=== PATIENT | female | born 1970 | race Caucasian/White ===

== ENCOUNTER 2019-12-24 11:52 | Inpatient (IN) | payer BC ==
[2019-12-24] MEDS ORDERED: HEPARIN SODIUM,PORCINE 5,000 UNIT/ML 1 ML VIAL IV PRN (12:27)
[2019-12-24] MEDS ORDERED: DILTIAZEM 125 MG in SODIUM CHLORIDE 0.9% 100 ML IV SCH (12:30)
[2019-12-24] MEDS ORDERED: HEPARIN SOD,PORK IN 0.45% NACL 25,000 UNIT in 0.45% NACL 1 250ML.BAG IV SCH (12:30)
--- NOTE | 2019-12-24 12:41 | ED ---
General Adult HPI - General Source: patient, EMS, RN notes reviewed Mode of arrival: EMS Limitations: no limitations <Ming Ramirez - Last Filed: 12/24/19 12:33> <Marcelino Brantley - Last Filed: 12/24/19 13:13> - General Chief complaint: Arrhythmia/Palpitations Stated complaint: irregular heart beat Time Seen by Provider: 12/24/19 11:56 - History of Present Illness Initial comments: 49-year-old female presents to the emergency department for a chief complaint of atrial fibrillation. Patient was a transfer from [facility]. Patient reports that for the past several months she has felt that her heart rate becomes elevated and starts to pound. States she first noticed it with running a couple months ago. Patient states at that point she saw her primary care provider who had a normal EKG and a low potassium. Patient was started on potassium supplements as well as hydrochlorothiazide. She states this has not been working. Patient states it is now to the point where it keeps her up at night. She denies shortness of breath. States that she was on her work today when her heart rate was in the 160s so she decided to be seen.Patient has no other complaints at this time including shortness of breath, chest pain, abdominal pain, nausea or vomiting, headache, or visual changes. (Ming Ramirez) - Related Data Allergies Allergy/AdvReac Type Severity Reaction Status Date / Time No Known Allergies Allergy Verified 12/24/19 12:15 Review of Systems ROS Other: All systems not noted in ROS Statement are negative. <Ming Ramirez - Last Filed: 12/24/19 12:33> ROS Other: All systems not noted in ROS Statement are negative. <Marcelino Brantley - Last Filed: 12/24/19 13:13> ROS Statement: Those systems with pertinent positive or pertinent negative responses have been documented in the HPI. Past Medical History Past Medical History: No Reported History History of Any Multi-Drug Resistant Organisms: None Reported Past Surgical History: No Surgical Hx Reported Past Psychological History: No Psychological Hx Reported Smoking Status: Never smoker Past Alcohol Use History: None Reported Past Drug Use History: None Reported <Ming Ramirez - Last Filed: 12/24/19 12:33> General Exam Limitations: no limitations General appearance: alert, in no apparent distress Head exam: Present: atraumatic, normocephalic, normal inspection Eye exam: Present: normal appearance, PERRL, EOMI. Absent: scleral icterus, conjunctival injection, periorbital swelling ENT exam: Present: normal exam, mucous membranes moist Neck exam: Present: normal inspection, full ROM. Absent: tenderness, meningismus, lymphadenopathy Respiratory exam: Present: normal lung sounds bilaterally. Absent: respiratory distress, wheezes, rales, rhonchi, stridor Cardiovascular Exam: Present: tachycardia, irregular rhythm. Absent: systolic murmur, diastolic murmur, rubs, gallop, clicks GI/Abdominal exam: Present: soft, normal bowel sounds. Absent: distended, tenderness, guarding, rebound, rigid Neurological exam: Present: alert <Ming Ramirez - Last Filed: 12/24/19 12:33> Course <Marcelino Brantley - Last Filed: 12/24/19 13:13> Vital Signs 12/24/19 12:02 Temperature 98.3 F Pulse Rate 91 Respiratory 16 Rate Blood Pressure 124/102 O2 Sat by Pulse 96 Oximetry - Reevaluation(s) Reevaluation #1: 12/24/19 13:12 PA supervision: The patient was transferred to our facility from an outside facility with new-onset A. fib RVR. Heart rate is markedly improved. Patient is asymptomatic this time. Still in A. fib however. Patient will be admitted the case was discussed with Dr. Littlejohn. (Marcelino Brantley) EKG Findings - EKG Comments: EKG Findings:: Atrial fibrillation, ventricular rate 113, QRS duration 74, QTC 433 <Ming Ramirez - Last Filed: 12/24/19 12:33> Medical Decision Making <Ming Ramirez - Last Filed: 12/24/19 12:33> - Medical Decision Making Laboratory evaluation from [facility] was reviewed. Hemoglobin 12. Platelets 169. Patient was started on a Cardizem and heart rate did come down to the 120s. CTA of the chest was negative for PE. It did however show evidence of heart failure. CT showed possible fluid overload given small right pleural effusion. Also recommended 3 month follow-up given sofía Cardial recess fluid or mild soft tissue thickening about the anterior mediastinum or kaiden. EKG was performed around arrival which showed a ventricular rate of 113 Patient will be restarted on Cardizem and heparin. Patient will admitted for cardiology consultation (Ming Ramirez) Disposition Is patient prescribed a controlled substance at d/c from ED?: No Time of Disposition: 12:41 <Ming Ramirez - Last Filed: 12/24/19 12:33> <Marcelino Brantley - Last Filed: 12/24/19 13:13> Clinical Impression: Atrial fibrillation with RVR Disposition: ADMITTED IP TO THIS HOSP
[2019-12-24] MEDS: METOPROLOL TARTRATE 50 MG TAB PO SCH ×2 (14:09→20:59)
--- NOTE | 2019-12-24 14:13 | P.HPIM ---
History of Present Illness 49-year-old pleasant female came into hospital with complaints of palpitations patient has the symptoms going is from her April on and off he can't even sleep because of the palpitations. Patient is found to be in atrial fibrillation with rapid ventricular rate. Patient only medical problem is hypertension for which patient is on hydrochlorothiazide and potassium supplementation at home. Patient denied any fever chills dysuria nausea vomiting diarrhea. Patient had a CAT scan of the chest at the [facility] which showed some possible pulmonary edema with small bilateral pleural effusions and there is mediastinal enlargement to possibly is being a pericardial effusion, or possibly of lymphoma for which patient later repeat CAT scan in about 3 months. Patient's BNP is around 900 no other significant abnormality was appreciated. Patient denied any orthopnea proximal nocturnal dyspnea chest pain. Review of Systems REVIEW OF SYSTEMS: CONSTITUTIONAL: No fever, no malaise, no fatigue. HEENT: No recent visual problems or hearing problems. Denied any sore throat. CARDIOVASCULAR: No chest pain, orthopnea, PND, no syncope. PULMONARY: No shortness of breath, no cough, no hemoptysis. GASTROINTESTINAL: No diarrhea, no nausea, no vomiting, no abdominal pain. NEUROLOGICAL: No headaches, no weakness, no numbness. HEMATOLOGICAL: Denies any bleeding or petechiae. GENITOURINARY: Denies any burning micturition, frequency, or urgency. MUSCULOSKELETAL/RHEUMATOLOGICAL: Denies any joint pain, swelling, or any muscle pain. ENDOCRINE: Denies any polyuria or polydipsia. The rest of the 14-point review of systems is negative. Past Medical History Past Medical History: No Reported History History of Any Multi-Drug Resistant Organisms: None Reported Past Surgical History: No Surgical Hx Reported Past Psychological History: No Psychological Hx Reported Smoking Status: Never smoker Past Alcohol Use History: None Reported Past Drug Use History: None Reported Medications and Allergies Home Medications Medication Instructions Recorded Confirmed Type Ascorbic Acid [Vitamin C] 500 mg PO DAILY 12/24/19 12/24/19 History Cyanocobalamin (Vitamin B-12) 1,000 mcg PO DAILY 12/24/19 12/24/19 History [Vitamin B-12] Garlic 1 tab PO DAILY 12/24/19 12/24/19 History Multivitamins, Thera [Multivitamin 1 tab PO DAILY 12/24/19 12/24/19 History (formulary)] Potassium Chloride [Klor-Con 20] 20 meq PO DAILY 12/24/19 12/24/19 History Turmeric Root Extract [Turmeric] 500 mg PO DAILY 12/24/19 12/24/19 History Vitamin E 400 unit PO DAILY 12/24/19 12/24/19 History Allergies Allergy/AdvReac Type Severity Reaction Status Date / Time No Known Allergies Allergy Verified 12/24/19 13:17 Physical Exam Vitals: Vital Signs Temp Pulse Resp BP Pulse Ox 12/24/19 13:54 98 F 125 H 18 125/74 96 12/24/19 13:26 98 F 125 H 18 125/74 96 12/24/19 12:02 98.3 F 91 16 124/102 96 Intake and Output 12/23/19 12/24/19 12/24/19 22:59 06:59 14:59 Other: Weight 73.028 kg PHYSICAL EXAMINATION: GENERAL: The patient is alert and oriented x3, not in any acute distress. Well developed, well nourished. HEENT: Pupils are round and equally reacting to light. EOMI. No scleral icterus. No conjunctival pallor. Normocephalic, atraumatic. No pharyngeal erythema. No thyromegaly. CARDIOVASCULAR: S1 and S2 present. No murmurs, rubs, or gallops. Patient has irregularly irregular rhythm, patient does have elevated JVD considering her Tachycardia it's not clear PULMONARY: Chest is clear to auscultation, no wheezing or crackles. ABDOMEN: Soft, nontender, nondistended, normoactive bowel sounds. No palpable organomegaly. MUSCULOSKELETAL: No joint swelling or deformity. EXTREMITIES: No cyanosis, clubbing, or pedal edema. NEUROLOGICAL: Gross neurological examination did not reveal any focal deficits. SKIN: No rashes. Assessment and Plan Plan: New Onset atrial fibrillation with rapid ventricular rate: Patient is presently on Cardizem there is a concern of heart failure probably from atrial fibrillation. Because of that I'll start her on metoprolol twice a day 50 mg tried to wean off Cardizem, echo cardiogram will be obtained. Patient BNP although is not significantly elevated. Troponin is negative. Because of for either persistent atrial fibrillation patient may need anti-correlation presently on heparin which will be continued -Hypertension -Mediastinal widening patient need a repeat CAT scan to make sure the patient doesn't have a malignancy like a lymphoma in about 3 months.
--- NOTE | 2019-12-24 15:24 | XR ---
EXAMINATION TYPE: XR chest 2V DATE OF EXAM: 12/24/2019 COMPARISON: CTA chest from outside institution 12/24/2019 HISTORY: Abnormal chest CT, rule out pneumonia TECHNIQUE: Frontal and lateral views of the chest are obtained. FINDINGS: There is a small right pleural effusion, blunting the right costophrenic angle is noted. T here is no pneumothorax. Cardiac mediastinal silhouette is within normal limits. No significant airsp emerson disease. IMPRESSION: Small right pleural effusion and associated atelectasis follow-up suggested.
[2019-12-24] MEDS ORDERED: ACETAMINOPHEN TAB 325 MG TAB PO PRN (21:33)
[2019-12-25 06:54] LABS: African American GFR (CKD) >90 (>60 ml/min/1.73 sqM); Anion Gap 4 mmol/L; Blood Urea Nitrogen 12 mg/dL (7-17); Calcium 9.2 mg/dL (8.4-10.2); Carbon Dioxide 24 mmol/L (22-30); Chloride 110 mmol/L (98-107); Cholesterol 87 mg/dL (<200); Glucose 107 mg/dL (74-99); HDL Cholesterol 42 mg/dL (40-60); LDL Cholesterol,Calculated 37 mg/dL (0-99); Non-African American GFR(CKD) >90 (>60 ml/min/1.73 sqM); Sodium 138 mmol/L (137-145); Triglycerides 41 mg/dL (<150)
[2019-12-25 06:58] LABS: Basophils % (A) 0 %; Eosinophils # (A) 0.1 k/uL (0-0.7); Eosinophils % (A) 2 %; HGB 11.7 gm/dL (11.4-16.0); Lymphocytes # (A) 1.9 k/uL (1.0-4.8); Lymphocytes % (A) 35 %; MCH 28.6 pg (25.0-35.0); MCHC 33.5 g/dL (31.0-37.0); MCV 85.4 fL (80.0-100.0); Monocytes # (A) 0.5 k/uL (0-1.0); Monocytes % (A) 9 %; Neutrophils # (A) 2.9 k/uL (1.3-7.7); Neutrophils % (A) 53 %; Platelet Count 157 k/uL (150-450); RDW 13.7 % (11.5-15.5); WBC 5.5 k/uL (3.8-10.6)
[2019-12-25] MEDS ORDERED: DILTIAZEM DRIP BOLUS FROM BAG 1 MG SOLN IV ONE (09:06)
[2019-12-25] MEDS ORDERED: FUROSEMIDE 10 MG/ML 2 ML VIAL IV ONE (09:09)
[2019-12-25] MEDS ORDERED: DILTIAZEM 125 MG in SODIUM CHLORIDE 0.9% 100 ML IV SCH (09:10)
[2019-12-25] MEDS ORDERED: METOPROLOL TARTRATE 25 MG TAB PO SCH (09:15)
--- NOTE | 2019-12-25 09:19 | ECHOF ---
Referral Reason:new onset A.Fib MEASUREMENTS -------- HEIGHT: 165.1 cm WEIGHT: 73.0 kg BP: RVIDd: 3.5 cm (< 3.3) IVSd: 0.8 cm (0.6 - 1.1) LVIDd: 4.5 cm (3.9 - 5.3) LVPWd: 1.3 cm (0.6 - 1.1) IVSs: 1.1 cm LVIDs: 3.4 cm LVPWs: 1.3 cm LA Diam: 4.5 cm (2.7 - 3.8) LAESV Index (A-L): 35.12 ml/m Ao Diam: 2.6 cm (2.0 - 3.7) AV Cusp: 2.0 cm (1.5 - 2.6) LA Diam: 4.3 cm (2.7 - 3.8) MV EXCURSION: 18.395 mm (> 18.000) MV EF SLOPE: 63 mm/s (70 - 150) EPSS: 0.7 cm MV E Oc: 1.00 m/s MV DecT: 101 ms MV A Oc: 0.04 m/s MV E/A Ratio: 23.35 RAP: 5.00 mmHg RVSP: 37.31 mmHg FINDINGS -------- Atrial fibrillation. This was a technically adequate study. The left ventricular size is normal. There is mild concentric left ventricular hypertrophy. Overa ll left ventricular systolic function is low-normal with, an EF between 50 - 55 %. The right ventricle is normal in size. LA is moderately dilated 34-39 ml/m2 The right atrial size is normal. There is mild aortic valve sclerosis. There is no evidence of aortic regurgitation. The mitral valve is normal. Mild mitral regurgitation is present. Mild tricuspid regurgitation present. There is mild pulmonary hypertension. The right ventricular systolic pressure, as measured by Doppler, is 37.31mmHg. There is no pulmonic regurgitation present. The aortic root size is normal. There is no pericardial effusion. CONCLUSIONS -------- 1. There is mild concentric left ventricular hypertrophy. 2. Overall left ventricular systolic function is low-normal with, an EF between 50 - 55 %. 3. LA is moderately dilated 34-39 ml/m2 4. There is mild aortic valve sclerosis. 5. Mild mitral regurgitation is present. 6. Mild tricuspid regurgitation present. 7. There is mild pulmonary hypertension. 8. There is no pericardial effusion. MUSCULOSKELETAL PHYSICIAN: Hoa Lewis RDCS
[2019-12-25] MEDS: ASPIRIN 325 MG TAB PO SCH (10:05)
[2019-12-25] MEDS: APIXABAN 5 MG TAB PO SCH ×2 (10:27→16:45)
[2019-12-25] MEDS ORDERED: PROPAFENONE 225 MG TAB PO STA (10:52)
[2019-12-25] MEDS: METOPROLOL TARTRATE 50 MG TAB PO SCH (10:56)
[2019-12-25 12:42] LABS: T4, Free (Free Thyroxine) 5.18 ng/dL (0.78-2.19)
[2019-12-25] MEDS: methIMAzole 5 MG TAB PO SCH ×3 (13:03→21:02)
--- NOTE | 2019-12-25 14:37 | P.PN ---
Subjective Patient is admitted for right new-onset atrial fibrillation patient has normal ejection fraction patient is willing to this time without any volume overload patient received Lasix yesterday because of pulmonary edema which is probably secondary to atrial fibrillation. Patient is presently on 25 3 times a day of metoprolol, patient was started back on Cardizem by cardiology and patient will also require received flecainide 1 dose hoping that she will cardiovert. Constitutional: Denied any fatigue denied any fever. Cardio vascular: denied any chest pain, palpitations Gastrointestinal denied any nausea vomiting Pulmonary: Denied any shortness of breath cough Neurologic denied any new focal deficits All inpatient medications were reviewed and appropriate changes in these medications as dictated in the interval history and assessment and plan. Objective - Vital Signs Vital signs: Vital Signs Temp 97.9 F 12/25/19 08:00 Pulse 111 H 12/25/19 12:00 Resp 16 12/25/19 12:00 BP 121/70 12/25/19 12:00 Pulse Ox 94 L 12/25/19 08:00 Intake & Output 12/24/19 12/25/19 12/25/19 18:59 06:59 18:59 Intake Total 230 Balance 230 Weight 73.028 kg 77.5 kg Intake: Oral 230 Other: # Voids 1 - Exam PHYSICAL EXAMINATION: GENERAL: The patient is alert and oriented x3, not in any acute distress. Well developed, well nourished. HEENT: Pupils are round and equally reacting to light. EOMI. No scleral icterus. No conjunctival pallor. Normocephalic, atraumatic. No pharyngeal erythema. No thyromegaly. CARDIOVASCULAR: S1 and S2 present. No murmurs, rubs, or gallops. Patient has irregularly irregular rhythm, patient does have elevated JVD considering her Tachycardia it's not clear PULMONARY: Chest is clear to auscultation, no wheezing or crackles. ABDOMEN: Soft, nontender, nondistended, normoactive bowel sounds. No palpable organomegaly. MUSCULOSKELETAL: No joint swelling or deformity. EXTREMITIES: No cyanosis, clubbing, or pedal edema. NEUROLOGICAL: Gross neurological examination did not reveal any focal deficits. SKIN: No rashes. - Labs CBC & Chem 7: 12/25/19 06:19 12/25/19 06:19 Labs: Abnormal Lab Results - Last 24 Hours (Table) 12/25/19 12/25/19 Range/Units 06:19 06:19 Chloride 110 H (98-107) mmol/L Creatinine 0.35 L (0.52-1.04) mg/dL Glucose 107 H (74-99) mg/dL TSH <0.015 L (0.465-4.680) mIU/L Free T4 5.18 H (0.78-2.19) ng/dL Assessment and Plan Plan: New Onset atrial fibrillation with rapid ventricular rate: Patient is presently on metoprolol as well as Cardizem and received 1 dose of recommended as radha alyssa above. Patient has normal ejection fraction. Patient had some pulmonary edema secondary to atrial fibrillation no evidence of systolic and diastolic dysfunction. Patient was started on Eliquis IV heparin was discontinued. - -Hypertension -Mediastinal widening patient need a repeat CAT scan to make sure the patient doesn't have a malignancy like a lymphoma in about 3 months.
--- NOTE | 2019-12-25 16:42 | CONS ---
CONSULTATION This is a 49-year-old lady who is a very active person physically. She does running almost 3 miles a day or so. She also has hypertension. She has been on medications in the past but stopped taking them lately since pressure was good, but takes hydrochlorothiazide on a p.r.n. basis. For the last 2 months she has been having palpitations with frequency and intensity that have progressively increased. She saw her primary care physician. At that time she was in sinus rhythm, but this time when she came into the hospital she was in atrial fibrillation with a moderate ventricular rate, and I was asked to see her in this regard. At the time of my evaluation, she is resting comfortably without symptoms, but initial arrival showed EKGs with atrial fibrillation with a moderately rapid ventricular rate. At the time of my evaluation, she is resting comfortably without symptoms. PAST MEDICAL HISTORY: 1. For the last 2 to 3 months she has been having frequent palpitations; probably had paroxysmal atrial fibrillation. 2. She does have a history of hypertension, for which she has taken medications in the past but stopped them and now takes hydrochlorothiazide almost on a p.r.n. basis. ALLERGIES: NONE. MEDICATIONS: Medications at home include hydrochlorothiazide 25 mg half tablet p.r.n. PHYSICAL EXAMINATION: On examination, blood pressure is 140/70, pulse rate is about 100 to 120, irregularly irregular. HEENT unremarkable. Fundus was not examined by me. Neck is supple. No JVD. I do not hear a carotid bruit. Heart exam reveals S1, S2 with irregular rhythm. No significant murmurs. Lungs reveal diminished air entry. Abdomen is soft. Lower extremities reveal palpable pulses. No edema. Central nervous system is grossly within normal limits. Echocardiogram revealed ejection fraction of 50% to 55% without significant pulmonary hypertension. There was aortic sclerosis noted. IMPRESSION: 1. New-onset atrial fibrillation. 2. History of hypertension. 3. No evidence of any diabetes or other significant cardiac history. RECOMMENDATIONS: I am recommending that we will place her on a Cardizem drip 10 mg bolus and 7.5 mg/hour drip, decrease the Lopressor to 25 mg [address]., place her on Eliquis 5 mg b.i.d. I am recommending thyroid function tests as well. I will also consider giving 450 mg of Rythmol to see if she converts to a normal rhythm. We will check thyroid function tests as well and then make further recommendations. Prognosis remains guarded. Thank you very much for the consult. TERRENCE / MAGGIE: [id number] /
[2019-12-25] MEDS: PROPRANOLOL 20 MG TAB PO SCH ×2 (16:45→21:02)
[2019-12-25] MEDS ORDERED: ONDANSETRON 4 MG/2 ML VIAL IVP PRN (19:45)
[2019-12-25] MEDS: PANTOPRAZOLE 40 MG TABLET PO SCH (20:07)
[2019-12-26] MEDS: PANTOPRAZOLE 40 MG TABLET PO SCH (06:33)
[2019-12-26 08:05] LABS: African American GFR (CKD) >90 (>60 ml/min/1.73 sqM); Anion Gap 6 mmol/L; Blood Urea Nitrogen 12 mg/dL (7-17); Calcium 9.3 mg/dL (8.4-10.2); Carbon Dioxide 24 mmol/L (22-30); Chloride 108 mmol/L (98-107); Glucose 85 mg/dL (74-99); Non-African American GFR(CKD) >90 (>60 ml/min/1.73 sqM); Potassium 4.1 mmol/L (3.5-5.1); Sodium 138 mmol/L (137-145)
[2019-12-26 08:15] LABS: Basophils % (A) 0 %; Eosinophils # (A) 0.1 k/uL (0-0.7); Eosinophils % (A) 1 %; HCT 35.2 % (34.0-46.0); HGB 11.9 gm/dL (11.4-16.0); Lymphocytes # (A) 1.6 k/uL (1.0-4.8); Lymphocytes % (A) 30 %; MCH 29.1 pg (25.0-35.0); MCHC 33.7 g/dL (31.0-37.0); MCV 86.3 fL (80.0-100.0); Mean Platelet Volume 8.5; Monocytes # (A) 0.5 k/uL (0-1.0); Monocytes % (A) 10 %; Neutrophils % (A) 57 %; Platelet Count 147 k/uL (150-450); RBC 4.07 m/uL (3.80-5.40); RDW 13.5 % (11.5-15.5); WBC 5.3 k/uL (3.8-10.6)
[2019-12-26] MEDS: PROPRANOLOL 20 MG TAB PO SCH (09:07)
[2019-12-26] MEDS: ASPIRIN 325 MG TAB PO SCH (09:07)
[2019-12-26] MEDS: APIXABAN 5 MG TAB PO SCH (09:07)
[2019-12-26] MEDS: methIMAzole 5 MG TAB PO SCH (09:08)
[2019-12-26 10:31] LABS: ALT 23 U/L (4-34); AST 35 U/L (14-36); Alkaline Phosphatase 119 U/L (38-126)
--- NOTE | 2019-12-26 13:00 | P.DS ---
Providers Date of admission: 12/24/19 12:41 Expected date of discharge: 12/26/19 Attending physician: Harpal Danielson Consults: 12/24/19 12:41 Consult Physician Routine Consulting Provider: [facility] Consult Reason/Comments: afib rvr Do you want consulting provider notified?: Yes Primary care physician: Shantanu Holland [facility] Course: Final diagnosis -New Onset atrial fibrillation with rapid ventricular rate -Mild pulmonary edema secondary to atrial fibrillation no evidence of systolic and diastolic dysfunction. -Hypertension -Mediastinal widening seen on x-ray, follow-up outpatient with a possible repeat CAT scan to make sure the patient doesn't have a malignancy like a lymphoma in about 3 months. Discharge disposition Patient is being discharged in a stable condition with guarded prognosis to home. Patient will follow-up with Dr. Holland upon discharge. Patient will also be following up with cardiology along with endocrine in the outpatient setting. Total time taken is 35 minutes. History of present illness This is a 49-year-old female who was recently admitted with new onset atrial fibrillation RVR and was being closely monitored. Patient was initiated on Cardizem drip and heparin. Cardiology evaluated and patient will continue on Tapazole 10 mg 3 times daily along with Inderal 40 mg 3 times daily. Patient will also be started on Eliquis 5 mg twice daily. Patient's TSH was low at 0.015 and free T4 was elevated at 5.18. As mentioned previously patient will follow up with endocrine and appointment is being discussed and scheduled for the patient. During hospitalization patient underwent echo showing overall left ventricular systolic function is low to normal with an EF between 50 and 55% with mild mitral and tricuspid regurgitation present along with some mild pulmonary hypertension. Currently no reports of chest pain, shortness of breath, or palpitations. Patient is afebrile. No reports of nausea or vomiting and patient is tolerating diet. Patient will be discharged today. On exam vital signs are stable. Temp is 98.1F, pulse is 87, respirations are 16, blood pressure is 112/71, oxygen saturation is 97% on room air. Cardio S1, S2 are present. Respiratory shows clear to auscultation. Abdomen is soft and nontender. Nervous system shows no focal deficits. Please refer to medication reconciliation sheet for a list of medications. Patient Condition at Discharge: Stable Plan - Discharge Summary Discharge Rx Participant: No New Discharge Prescriptions: New Apixaban [Eliquis] 5 mg PO BID #60 tab Propranolol [Inderal] 40 mg PO TID 30 Days #90 tab Methimazole [Tapazole] 10 mg PO TID 30 Days #90 tab Continue Vitamin E 400 unit PO DAILY Multivitamins, Thera [Multivitamin (formulary)] 1 tab PO DAILY Garlic 1 tab PO DAILY Cyanocobalamin (Vitamin B-12) [Vitamin B-12] 1,000 mcg PO DAILY Ascorbic Acid [Vitamin C] 500 mg PO DAILY Turmeric Root Extract [Turmeric] 500 mg PO DAILY Discontinued Potassium Chloride [Klor-Con 20] 20 meq PO DAILY Discharge Medication List Ascorbic Acid [Vitamin C] 500 mg PO DAILY 12/24/19 [History] Cyanocobalamin (Vitamin B-12) [Vitamin B-12] 1,000 mcg PO DAILY 12/24/19 [History] Garlic 1 tab PO DAILY 12/24/19 [History] Multivitamins, Thera [Multivitamin (formulary)] 1 tab PO DAILY 12/24/19 [History] Turmeric Root Extract [Turmeric] 500 mg PO DAILY 12/24/19 [History] Vitamin E 400 unit PO DAILY 12/24/19 [History] Apixaban [Eliquis] 5 mg PO BID #60 tab 12/25/19 [Rx] Methimazole [Tapazole] 10 mg PO TID 30 Days #90 tab 12/26/19 [Rx] Propranolol [Inderal] 40 mg PO TID 30 Days #90 tab 12/26/19 [Rx] Follow up Appointment(s)/Referral(s): Louise Baker MD [STAFF PHYSICIAN] - 2 Weeks (Dr Baker's office will call you with follow up appointment) Sanjay Vasquez MD [REFERRING] - 01/01/20 Shantanu Holland MD [Primary Care Provider] - 12/30/19 8:30 am Patient Instructions/Handouts: A-fib (Atrial Fibrillation) (DC), Hyperthyroidism (DC) Activity/Diet/Wound Care/Special Instructions: Activity Limited until follow-up with primary care Follow-up with primary care provider upon discharge Patient will follow-up with endocrinology in the outpatient setting an appointment will be made Follow-up with cardiology in the outpatient setting Discharge Disposition: HOME SELF-CARE
[2019-12-26 13:17] VITALS: BP 102/53; PULSE 76; RESP 18; TEMP 98.2
--- NOTE | 2019-12-26 14:45 | PN ---
PROGRESS NOTE This lady, after doing some blood work, was found to have significant hyperthyroidism. I started her on Tapazole 10 mg b.i.d. We will check liver function tests today and CBC is good. I am recommending Endocrinology appointment. I made an appointment with her to see Dr. Vasquez in the next two weeks. We will still send her home on Inderal and Tapazole. Her free T4 was 5.1 and TSH was less than 0.15. Vital signs stable. No JVD. She is maintaining sinus rhythm, S1, S2 heard normally. Lungs are clear. Abdomen and lower extremity exam unchanged. MMODL / IJN: [id number] /
[2019-12-26] MEDS ORDERED: methIMAzole 5 MG TAB PO SCH (16:00)
[2019-12-26] MEDS ORDERED: PROPRANOLOL 40 MG TAB PO SCH (16:00)
== END 2019-12-26 15:48 | disposition home or self-care (01) | DRG 309 ==
LOC: SUPCPDRO 11:52 → EC 11:52 → 3SCARD 12:41
PROVIDERS: ADMIT Hospitalist; ATTEND Hospitalist
DX: I48.0 Paroxysmal atrial fibrillation (principal); J81.1 Chronic pulmonary edema; Z11.59 Encounter for screening for other viral diseases; I27.20 Pulmonary hypertension, unspecified; I11.9 Hypertensive heart disease without heart failure; I08.1 Rheumatic disorders of both mitral and tricuspid valves; R93.7 Abnormal findings on diagnostic imaging of other parts of musculoskeletal system; E05.90 Thyrotoxicosis, unspecified without thyrotoxic crisis or storm; Z79.899 Other long term (current) drug therapy
CPT/HCPCS: 71046; 80048; 80061; 83880; 84075; 84439; 84443; 84450; 84460; 84484; 85025; 85730; 93005; 93306; 96365; 99285

== ENCOUNTER 2019-12-27 23:17 | Observation (INO) | payer BC ==
--- NOTE | 2019-12-28 00:06 | ED ---
Arrhythmia/Palpitations HPI - General Chief Complaint: Recheck/Abnormal Lab/Rx Stated Complaint: High Heart Rate Time Seen by Provider: 12/27/19 23:31 Source: patient Mode of arrival: ambulatory Limitations: no limitations - History of Present Illness Initial Comments: This patient is a 49-year-old woman recently diagnosed with atrial fibrillation, who presents to be evaluated for rapid and irregular heartbeat. She states that the symptoms started this afternoon. Patient denies having any chest pain or pressure. No dyspnea. No nausea, vomiting, diaphoresis, lightheadedness or syncope. In addition, the patient has some bilateral ankle edema and she noted that she had had an increase in her weight of about 8 pounds over the past week to 10 days. She feels that most of this is related to the IV saline she had received while in the hospital but was concerned that the fluid had not resolved following discharge. MD Complaint: "heart racing" -: hour(s) Context: occurred during rest Arrhythmia History: atrial fibrillation Associated Symptoms: other (Leg edema) - Related Data Home Medications Medication Instructions Recorded Confirmed Ascorbic Acid [Vitamin C] 500 mg PO DAILY 12/24/19 12/28/19 Cyanocobalamin (Vitamin B-12) 1,000 mcg PO DAILY 12/24/19 12/28/19 [Vitamin B-12] Garlic 1 tab PO DAILY 12/24/19 12/28/19 Multivitamins, Thera [Multivitamin 1 tab PO DAILY 12/24/19 12/28/19 (formulary)] Turmeric Root Extract [Turmeric] 500 mg PO DAILY 12/24/19 12/28/19 Vitamin E 400 unit PO DAILY 12/24/19 12/28/19 Previous Rx's Medication Instructions Recorded Apixaban [Eliquis] 5 mg PO BID #60 tab 12/25/19 Methimazole [Tapazole] 10 mg PO TID 30 Days #90 tab 12/26/19 Propranolol [Inderal] 40 mg PO TID 30 Days #90 tab 12/26/19 Allergies Allergy/AdvReac Type Severity Reaction Status Date / Time No Known Allergies Allergy Verified 12/27/19 23:26 Review of Systems ROS Statement: Those systems with pertinent positive or pertinent negative responses have been documented in the HPI. ROS Other: All systems not noted in ROS Statement are negative. Constitutional: Denies: fever, chills, weakness Respiratory: Denies: cough, dyspnea Cardiovascular: Reports: as per HPI, palpitations, edema. Denies: chest pain, orthopnea, syncope Gastrointestinal: Denies: abdominal pain, nausea, vomiting, diarrhea, constipation, melena, hematochezia Genitourinary: Denies: dysuria Musculoskeletal: Denies: back pain Skin: Denies: rash Neurological: Denies: headache, weakness, numbness Hematological/Lymphatic: Denies: easy bleeding Past Medical History Past Medical History: Hypertension Additional Past Medical History / Comment(s): Pt has had desired wt loss and B/Ps have been running lower so has been off hydrochlorthiazide for 3 days, palpitations on and off since August 2019 and some SOB, pt states past 2 weeks has notice bilateral ankle/pedal edema and abdominal bloating, past hypokalemia History of Any Multi-Drug Resistant Organisms: None Reported Past Surgical History: No Surgical Hx Reported Past Anesthesia/Blood Transfusion Reactions: Unable to Obtain Additional Past Anesthesia/Blood Transfusion Reaction / Comment(s): Pt has never had surgery. Past Psychological History: No Psychological Hx Reported Smoking Status: Never smoker Past Alcohol Use History: None Reported Past Drug Use History: None Reported - Past Family History Father Family Medical History: No Reported History Additional Family Medical History / Comment(s): Father is healthy Mother Family Medical History: No Reported History Additional Family Medical History / Comment(s): Mother is healthy. General Exam Limitations: no limitations General appearance: alert, in no apparent distress Head exam: Present: atraumatic, normocephalic Eye exam: Present: normal appearance. Absent: scleral icterus, conjunctival injection ENT exam: Present: normal oropharynx Respiratory exam: Present: normal lung sounds bilaterally. Absent: respiratory distress, wheezes, rales, rhonchi, stridor Cardiovascular Exam: Present: tachycardia, irregular rhythm, normal heart sounds. Absent: systolic murmur, diastolic murmur, rubs, gallop GI/Abdominal exam: Present: soft. Absent: distended, tenderness, guarding, rebound, rigid Extremities exam: Present: normal inspection, normal capillary refill, pedal edema. Absent: calf tenderness Back exam: Present: normal inspection. Absent: CVA tenderness (R), CVA tenderness (L) Neurological exam: Present: alert Skin exam: Present: warm, dry, intact, normal color. 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 ] Respiratory 18 16 18 Rate Blood Pressure 151/98 O2 Sat by Pulse 99 Oximetry 12/28/19 12/28/19 12/28/19 01:00 01:30 02:00 Temperature Pulse Rate 111 H 122 H 116 H Pulse Rate [ [employer] Specialist ] Respiratory 20 20 20 Rate Blood Pressure 142/99 131/105 134/83 O2 Sat by Pulse 98 97 96 Oximetry 12/28/19 12/28/19 12/28/19 02:30 03:00 03:30 Temperature Pulse Rate 125 H 98 92 Pulse Rate [ [employer] Specialist ] Respiratory 20 20 22 Rate Blood Pressure 136/81 127/95 115/76 O2 Sat by Pulse 97 97 98 Oximetry EKG Findings - EKG Results: EKG: interpreted by ERMD, normal axis, normal QRS, normal ST/T EKG shows: atrial fibrillation (Rate approximately 117 bpm) Medical Decision Making - Medical Decision Making This patient is a 49-year-old woman with history of hyperthyroidism and recent diagnosis of atrial fibrillation who presents with atrial fibrillation and rapid ventricular rate. She is given 3 additional doses of beta eugenia and still heart rate running 100 to 120s. Patient is very anxious about going home and having the heart rate increased back to 130s to 40s. We will admit to see about further rate control. - Lab Data Result diagrams: 12/28/19 00:20 12/28/19 00:20 Lab Results 12/28/19 12/28/19 12/28/19 Range/Units 00:20 00:20 00:20 WBC 5.5 (3.8-10.6) k/uL RBC 4.15 (3.80-5.40) m/uL Hgb 12.3 (11.4-16.0) gm/dL Hct 35.6 (34.0-46.0) % MCV 85.6 (80.0-100.0) fL MCH 29.6 (25.0-35.0) pg MCHC 34.6 (31.0-37.0) g/dL RDW 13.3 (11.5-15.5) % Plt Count 151 (150-450) k/uL Neutrophils % 43 % Lymphocytes % 45 % Monocytes % 8 % Eosinophils % 2 % Basophils % 0 % Neutrophils # 2.3 (1.3-7.7) k/uL Lymphocytes # 2.4 (1.0-4.8) k/uL Monocytes # 0.5 (0-1.0) k/uL Eosinophils # 0.1 (0-0.7) k/uL Basophils # 0.0 (0-0.2) k/uL PT 11.7 (9.0-12.0) sec INR 1.1 (<1.2) APTT 23.6 (22.0-30.0) sec Sodium 138 (137-145) mmol/L Potassium 4.2 (3.5-5.1) mmol/L Chloride 108 H (98-107) mmol/L Carbon Dioxide 25 (22-30) mmol/L Anion Gap 5 mmol/L BUN 11 (7-17) mg/dL Creatinine 0.43 L (0.52-1.04) mg/dL Est GFR (CKD-EPI)AfAm >90 (>60 ml/min/1.73 sqM) Est GFR (CKD-EPI)NonAf >90 (>60 ml/min/1.73 sqM) Glucose 93 (74-99) mg/dL Calcium 9.2 (8.4-10.2) mg/dL Magnesium 1.7 (1.6-2.3) mg/dL Troponin I (0.000-0.034) ng/mL 12/28/19 Range/Units 00:20 WBC (3.8-10.6) k/uL RBC (3.80-5.40) m/uL Hgb (11.4-16.0) gm/dL Hct (34.0-46.0) % MCV (80.0-100.0) fL MCH (25.0-35.0) pg MCHC (31.0-37.0) g/dL RDW (11.5-15.5) % Plt Count (150-450) k/uL Neutrophils % % Lymphocytes % % Monocytes % % Eosinophils % % Basophils % % Neutrophils # (1.3-7.7) k/uL Lymphocytes # (1.0-4.8) k/uL Monocytes # (0-1.0) k/uL Eosinophils # (0-0.7) k/uL Basophils # (0-0.2) k/uL PT (9.0-12.0) sec INR (<1.2) APTT (22.0-30.0) sec Sodium (137-145) mmol/L Potassium (3.5-5.1) mmol/L Chloride (98-107) mmol/L Carbon Dioxide (22-30) mmol/L Anion Gap mmol/L BUN (7-17) mg/dL Creatinine (0.52-1.04) mg/dL Est GFR (CKD-EPI)AfAm (>60 ml/min/1.73 sqM) Est GFR (CKD-EPI)NonAf (>60 ml/min/1.73 sqM) Glucose (74-99) mg/dL Calcium (8.4-10.2) mg/dL Magnesium (1.6-2.3) mg/dL Troponin I <0.012 (0.000-0.034) ng/mL Critical Care Time Critical Care Time: Yes (35 minutes) Disposition Clinical Impression: Atrial fibrillation with RVR Disposition: ADMITTED IP TO THIS HOSP Condition: Good Is patient prescribed a controlled substance at d/c from ED?: No
[2019-12-28] MEDS ORDERED: METOPROLOL TARTRATE 5 MG/5 ML VIAL IVP STA ×3 (00:12→03:40)
[2019-12-28 00:36] LABS: Basophils % (A) 0 %; Eosinophils # (A) 0.1 k/uL (0-0.7); Eosinophils % (A) 2 %; HCT 35.6 % (34.0-46.0); HGB 12.3 gm/dL (11.4-16.0); Lymphocytes # (A) 2.4 k/uL (1.0-4.8); Lymphocytes % (A) 45 %; MCH 29.6 pg (25.0-35.0); MCHC 34.6 g/dL (31.0-37.0); MCV 85.6 fL (80.0-100.0); Monocytes # (A) 0.5 k/uL (0-1.0); Monocytes % (A) 8 %; Neutrophils # (A) 2.3 k/uL (1.3-7.7); Neutrophils % (A) 43 %; Platelet Count 151 k/uL (150-450); RBC 4.15 m/uL (3.80-5.40); RDW 13.3 % (11.5-15.5); WBC 5.5 k/uL (3.8-10.6)
[2019-12-28 00:44] LABS: INR 1.1 (<1.2)
[2019-12-28 00:45] LABS: Partial Thromboplastin Time 23.6 sec (22.0-30.0); Prothrombin Time 11.7 sec (9.0-12.0)
[2019-12-28 01:02] LABS: African American GFR (CKD) >90 (>60 ml/min/1.73 sqM); Anion Gap 5 mmol/L; Blood Urea Nitrogen 11 mg/dL (7-17); Calcium 9.2 mg/dL (8.4-10.2); Carbon Dioxide 25 mmol/L (22-30); Chloride 108 mmol/L (98-107); Glucose 93 mg/dL (74-99); Magnesium 1.7 mg/dL (1.6-2.3); Non-African American GFR(CKD) >90 (>60 ml/min/1.73 sqM); Potassium 4.2 mmol/L (3.5-5.1); Sodium 138 mmol/L (137-145)
[2019-12-28] MEDS ORDERED: FUROSEMIDE 10 MG/ML 4 ML VIAL IV STA (01:03)
[2019-12-28] MEDS ORDERED: NITROGLYCERIN SL TABS 0.4 MG TAB SUBLINGUAL PRN (03:38)
[2019-12-28 04:39] VITALS: RESP 18
[2019-12-28] MEDS ORDERED: PROPRANOLOL 40 MG TAB PO SCH (09:00)
[2019-12-28] MEDS ORDERED: PROPRANOLOL 20 MG TAB PO SCH (09:00)
[2019-12-28] MEDS ORDERED: APIXABAN 5 MG TAB PO SCH (09:00)
[2019-12-28] MEDS ORDERED: CYANOCOBALAMIN 500 MCG TAB PO SCH (09:00)
[2019-12-28] MEDS ORDERED: ASCORBIC ACID 500 MG TAB PO SCH (09:00)
[2019-12-28] MEDS ORDERED: methIMAzole 5 MG TAB PO SCH (09:00)
[2019-12-28 10:14] VITALS: BP 129/74; PULSE 114; TEMP 98
--- NOTE | 2019-12-28 15:18 | CONS ---
CONSULTATION This 49-year-old lady was recently in the hospital, paroxysmal atrial fibrillation converted to sinus rhythm. She also has severe hyperthyroidism. I started her on 10 mg b.i.d. of methimazole and Inderal 40 mg t.i.d., discharged her but she comes in with palpitations and a heart rate of 130 or so. She is in atrial fib. Rate control is suboptimal. I explained to her that given her hyperthyroidism rate control is going to be difficult to achieve. I am suggesting that she should take 60 mg of Inderal t.i.d. instead of 40 mg, continue the methimazole at 10 mg t.i.d. and she can be discharged on this regimen. If she has any palpitations to take an additional dose and not to do any strenuous activity. Vitals are stable. No JVD. S1, S2 heard normally, irregular rhythm noted. Short systolic murmur noted. Lungs reveal diminished air entry. Abdomen and lower extremity exam is unchanged. IMPRESSION: 1. Paroxysmal atrial fibrillation secondary to hyperthyroidism. 2. Hyperthyroidism. 3. History of hypertension. RECOMMENDATION: I am recommending that we increase Inderal, continue Eliquis 5 mg b.i.d. and also methimazole 10 mg t.i.d. Patient can be discharged later on today. I have given her detailed instructions and reviewed with her the Inderal dosage. Thank you very much for the consult. TERRENCE / KALINAN: [id number] /
--- NOTE | 2019-12-28 15:38 | P.HPIM ---
History of Present Illness Patient is a very pleasant 49-year-old female came in with complaints of irregular heartbeat and was also having increased swelling in both legs. Patient was recently discharged from hospital after she was treated for atrial fibrillation with rapid ventricular rate to secondary to hyperthyroidism patient was also started on methimazole patient was discharged on propranolol and at that time patient was discharged on 40 mg daily of propranolol. Patient had a normal echocardiogram in the past patient had mildly pulmonary edema secondary to atrial fibrillation without any evidence of systolic or diastolic dysfunction. Patient was also started on Eliquis. Patient still is bit tachycardic but her heart rate did come down with increase of 4 propranolol patient was ordered by cardiology and cleared for discharge and patient also wanted to go home patient's propranolol dose will be increased to 60 3 times a day and with empiric methimazole will be continued patient will follow-up with endocrinology cardiology and PCP as an outpatient. Review of Systems REVIEW OF SYSTEMS: CONSTITUTIONAL: No fever, no malaise, no fatigue. HEENT: No recent visual problems or hearing problems. Denied any sore throat. CARDIOVASCULAR: No orthopnea, PND, no syncope. PULMONARY: No shortness of breath, no cough, no hemoptysis. GASTROINTESTINAL: No diarrhea, no nausea, no vomiting, no abdominal pain. NEUROLOGICAL: No headaches, no weakness, no numbness. HEMATOLOGICAL: Denies any bleeding or petechiae. GENITOURINARY: Denies any burning micturition, frequency, or urgency. MUSCULOSKELETAL/RHEUMATOLOGICAL: Denies any joint pain, swelling, or any muscle pain. ENDOCRINE: Denies any polyuria or polydipsia. The rest of the 14-point review of systems is negative. Past Medical History Past Medical History: Hypertension Additional Past Medical History / Comment(s): Pt has had desired wt loss and B/Ps have been running lower so has been off hydrochlorthiazide for 3 days, palpitations on and off since August 2019 and some SOB, pt states past 2 weeks has notice bilateral ankle/pedal edema and abdominal bloating, past hypokalemia History of Any Multi-Drug Resistant Organisms: None Reported Past Surgical History: No Surgical Hx Reported Past Anesthesia/Blood Transfusion Reactions: Unable to Obtain Additional Past Anesthesia/Blood Transfusion Reaction / Comment(s): Pt has never had surgery. Past Psychological History: No Psychological Hx Reported Smoking Status: Never smoker Past Alcohol Use History: None Reported Past Drug Use History: None Reported - Past Family History Father Family Medical History: No Reported History Additional Family Medical History / Comment(s): Father is healthy Mother Family Medical History: No Reported History Additional Family Medical History / Comment(s): Mother is healthy. Medications and Allergies Home Medications Medication Instructions Recorded Confirmed Type Ascorbic Acid [Vitamin C] 500 mg PO DAILY 12/24/19 12/28/19 History Cyanocobalamin (Vitamin B-12) 1,000 mcg PO DAILY 12/24/19 12/28/19 History [Vitamin B-12] Garlic 1 tab PO DAILY 12/24/19 12/28/19 History Multivitamins, Thera [Multivitamin 1 tab PO DAILY 12/24/19 12/28/19 History (formulary)] Turmeric Root Extract [Turmeric] 500 mg PO DAILY 12/24/19 12/28/19 History Vitamin E 400 unit PO DAILY 12/24/19 12/28/19 History Apixaban [Eliquis] 5 mg PO BID #60 tab 12/25/19 12/28/19 Rx Methimazole [Tapazole] 10 mg PO TID 30 Days #90 tab 12/26/19 12/28/19 Rx Furosemide [Lasix] 20 mg PO DAILY PRN #30 tab 12/28/19 Rx Potassium Chloride ER [K-Dur 10] 10 meq PO DAILY #30 tab 12/28/19 Rx Propranolol [Inderal] 60 mg PO TID #90 tab 12/28/19 Rx Allergies Allergy/AdvReac Type Severity Reaction Status Date / Time No Known Allergies Allergy Verified 12/28/19 08:43 Physical Exam Vitals: Vital Signs Temp Pulse Pulse Resp BP BP Pulse Ox 12/28/19 08:10 98 F 114 H 18 129/74 98 12/28/19 04:40 116 H 18 12/28/19 04:20 98.2 F 116 H 18 134/88 99 12/28/19 03:30 92 22 115/76 98 12/28/19 03:00 98 20 127/95 97 12/28/19 02:30 125 H 20 136/81 97 12/28/19 02:00 116 H 20 134/83 96 12/28/19 01:30 122 H 20 131/105 97 12/28/19 01:00 111 H 20 142/99 98 12/28/19 00:14 110 H 18 12/27/19 23:55 121 H 16 12/27/19 23:24 98 F 130 H 18 151/98 99 Intake and Output 12/28/19 12/28/19 12/28/19 06:59 14:59 22:59 Intake Total 300 120 Output Total 1400 Balance 300 -1280 Intake: Oral 300 120 Output: Urine 1400 Other: Voiding Method Toilet # Voids 0 Weight 75.2 kg PHYSICAL EXAMINATION: GENERAL: The patient is alert and oriented x3, not in any acute distress. Well developed, well nourished. HEENT: Pupils are round and equally reacting to light. EOMI. No scleral icterus. No conjunctival pallor. Normocephalic, atraumatic. No pharyngeal erythema. No thyromegaly. CARDIOVASCULAR: S1 and S2 present. No murmurs, rubs, or gallops. Tachycardic irregularly regular rhythm PULMONARY: Chest is clear to auscultation, no wheezing or crackles. ABDOMEN: Soft, nontender, nondistended, normoactive bowel sounds. No palpable organomegaly. MUSCULOSKELETAL: No joint swelling or deformity. EXTREMITIES: No cyanosis, clubbing, or pedal edema. NEUROLOGICAL: Gross neurological examination did not reveal any focal deficits. SKIN: No rashes. Results CBC & Chem 7: 12/28/19 00:20 12/28/19 00:20 Labs: Abnormal Lab Results - Last 24 Hours (Table) 12/28/19 Range/Units 00:20 Chloride 108 H (98-107) mmol/L Creatinine 0.43 L (0.52-1.04) mg/dL Thrombosis Risk Factor Assmnt - Choose All That Apply Any of the Below Risk Factors Present?: Yes Each Factor Represents 1 point: Age 41-60 years Other Risk Factors: No Other congenital or acquired thrombophilia - If yes, enter type in comment: No Thrombosis Risk Factor Assessment Total Risk Factor Score: 1 Thrombosis Risk Factor Assessment Level: Low Risk Assessment and Plan Plan: -Atrial fibrillation with rapid ventricular rate: Increasing the dose of propranolol to 60 3 times a day patient will continue with Eliquis and methimazole -Hypothyroidism -History of essential hypertension used to be on diuretics in the past patient received a dose of Lasix here patient is not in heart failure exacerbation this time will not need to continue any diuretics
--- NOTE | 2019-12-28 15:39 | P.DS ---
Providers Date of admission: 12/28/19 03:40 Attending physician: Harpal Danielson Consults: 12/28/19 03:39 Consult Physician Routine Consulting Provider: Louise Baker Consult Reason/Comments: Atrial fibrillation rapid ventricular rate Do you want consulting provider notified?: Yes Primary care physician: Marcelino Pierson [facility] Course: Please of her history of present illness for further details . Patient Condition at Discharge: Good Plan - Discharge Summary Discharge Rx Participant: No New Discharge Prescriptions: New Propranolol [Inderal] 60 mg PO TID #90 tab Furosemide [Lasix] 20 mg PO DAILY PRN #30 tab PRN Reason: Edema Potassium Chloride ER [K-Dur 10] 10 meq PO DAILY #30 tab Continue Vitamin E 400 unit PO DAILY Multivitamins, Thera [Multivitamin (formulary)] 1 tab PO DAILY Garlic 1 tab PO DAILY Cyanocobalamin (Vitamin B-12) [Vitamin B-12] 1,000 mcg PO DAILY Ascorbic Acid [Vitamin C] 500 mg PO DAILY Turmeric Root Extract [Turmeric] 500 mg PO DAILY Apixaban [Eliquis] 5 mg PO BID #60 tab Methimazole [Tapazole] 10 mg PO TID 30 Days #90 tab Discontinued Propranolol [Inderal] 40 mg PO TID 30 Days #90 tab Discharge Medication List Ascorbic Acid [Vitamin C] 500 mg PO DAILY 12/24/19 [History] Cyanocobalamin (Vitamin B-12) [Vitamin B-12] 1,000 mcg PO DAILY 12/24/19 [History] Garlic 1 tab PO DAILY 12/24/19 [History] Multivitamins, Thera [Multivitamin (formulary)] 1 tab PO DAILY 12/24/19 [History] Turmeric Root Extract [Turmeric] 500 mg PO DAILY 12/24/19 [History] Vitamin E 400 unit PO DAILY 12/24/19 [History] Apixaban [Eliquis] 5 mg PO BID #60 tab 12/25/19 [Rx] Methimazole [Tapazole] 10 mg PO TID 30 Days #90 tab 12/26/19 [Rx] Furosemide [Lasix] 20 mg PO DAILY PRN #30 tab 12/28/19 [Rx] Potassium Chloride ER [K-Dur 10] 10 meq PO DAILY #30 tab 12/28/19 [Rx] Propranolol [Inderal] 60 mg PO TID #90 tab 12/28/19 [Rx] Follow up Appointment(s)/Referral(s): Marcelino Pierson NPC [Primary Care Provider] - 3 Days Patient Instructions/Handouts: A-fib (Atrial Fibrillation) (DC) Discharge/Stand Alone Forms: Work/School Release Discharge Disposition: HOME SELF-CARE
[2019-12-29] MEDS ORDERED: ASPIRIN 325 MG TAB PO SCH (09:00)
== END 2019-12-28 13:19 | disposition home or self-care (01) ==
LOC: EC 23:17 → 3SCARD 12-28 03:40 → INTOOBSV 12-28 03:40 → UNDODISIN 12-28 13:19
PROVIDERS: ADMIT Hospitalist; ATTEND Hospitalist
DX: I48.0 Paroxysmal atrial fibrillation (principal); E05.90 Thyrotoxicosis, unspecified without thyrotoxic crisis or storm; Z11.59 Encounter for screening for other viral diseases; I10 Essential (primary) hypertension; R60.0 Localized edema; Z79.01 Long term (current) use of anticoagulants; Z79.899 Other long term (current) drug therapy
CPT/HCPCS: 96376; 96374; 96375; 99291; 36415; 93005; 80048; 83735; 84484; 85025; 85610; 85730; G0378; U0003; J1940

== ENCOUNTER 2020-04-13 06:02 | Day surgery (SDC) | payer BC ==
[2020-04-09 14:47] VITALS: BMI 26.9
[~2020-04-13 06:02] MED LIST: SODIUM CHLORIDE 0.9% 1,000 ML IV SCH
[2020-04-13 06:21] VITALS: TEMP 97.6
[2020-04-13 06:52] LABS: African American GFR (CKD) >90 (>60 ml/min/1.73 sqM); Anion Gap 7 mmol/L; Blood Urea Nitrogen 8 mg/dL (7-17); Calcium 9.5 mg/dL (8.4-10.2); Carbon Dioxide 26 mmol/L (22-30); Chloride 105 mmol/L (98-107); Glucose 94 mg/dL (74-99); Non-African American GFR(CKD) 80 (>60 ml/min/1.73 sqM); Potassium 4.3 mmol/L (3.5-5.1); Sodium 138 mmol/L (137-145)
[2020-04-13] MEDS ORDERED: LIDOCAINE 1% INJ 10MG/ML (20 ML MDV) ONE (07:31)
[2020-04-13] MEDS ORDERED: PROPOFOL 10 MG/ML 20 ML VIAL IV ONE (07:31)
[2020-04-13 07:47] VITALS: RESP 16
[2020-04-13] MEDS ORDERED: SODIUM CHLORIDE 0.9% 250 ML IV ONE (08:22)
--- NOTE | 2020-04-13 09:38 | CE ---
CARDIAC ELECTROPHYSIOLOGY REPORT DATE OF SERVICE: 04/13/2020 PROCEDURE: Electrical cardioversion. INDICATION: Persistent atrial fibrillation and hyperthyroidism which has been corrected and patient was euthyroid. This patient had recent onset atrial fibrillation, rapid rates persistent and after achieving rate control and anticoagulation, she was brought in for the electrical cardioversion electively. PROCEDURE NOTE: Under the influence of ultra short-acting intravenous anesthetic, with the attendance of the anesthesiologist, the patient initially received a 50 joule shock, synchronized with anterior and posterior patches. The rhythm initially was atrial flutter with variable but controlled rate. This shock resulted in her converting to atrial fibrillation with a rate in the 80s. A second shock of 150 joules was given and she remained in atrial fibrillation and a third and final short of 200 joules was delivered and this also was unsuccessful and patient remained in atrial fibrillation; however, with controlled rate. She was hemodynamically stable and still quite sleepy at the time of this dictation and will be watched very closely. PLAN: This was an unsuccessful electrical cardioversion and results will be discussed with the patient when she is fully awake and also with her . 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 This was an unsuccessful electrical cardioversion. MMODL / IJN: [id number] /
[2020-04-13 11:47] VITALS: BP 98/56; PULSE 88
== END 2020-04-13 13:45 | disposition home or self-care (01) ==
LOC: CATHCVL 06:02
PROVIDERS: ATTEND Internal Medicine Interventional Cardiology
DX: I48.19 Other persistent atrial fibrillation (principal); E05.90 Thyrotoxicosis, unspecified without thyrotoxic crisis or storm; I10 Essential (primary) hypertension; Z79.01 Long term (current) use of anticoagulants
CPT/HCPCS: 92960; 80048; 81025; J2001; J2704